=== PATIENT | female | born 1990 | race Caucasian/White ===

== ENCOUNTER → 2016-09-18 | Outpatient (CLI) | payer BC ==
--- NOTE | 2016-09-18 11:27 | US ---
EXAMINATION TYPE: US thyroid st tissue head/neck DATE OF EXAM: 09/18/2016 COMPARISON: US CLINICAL HISTORY: E04.1 Thyroid Nodule. GLAND SIZE: Right Lobe: 4.8 x 1.1 x 1.7 cm Overall Parenchyma: homogenous Left Lobe: 5.0 x 1.5 x 1.6 cm Overall Parenchyma: homogeneous Isthmus Thickness: 0.3 cm NODULES RIGHT: # of nodules measured on right: 0 LEFT: # of nodules measured on left: 0 ISTHMUS: # of nodules measured in the isthmus: 0 Bilateral neck scanned, no evidence of lymphadenopathy. Unable to reproduce tiny nodule seen on previous, node not identified either. IMPRESSION: THYROMEGALY.
== END | disposition home or self-care (01) ==
LOC: RADUSWWP 10:46
PROVIDERS: ATTEND Otolaryngology
DX: E01.0 Iodine-deficiency related diffuse (endemic) goiter (principal)
CPT/HCPCS: 76536

== ENCOUNTER 2020-11-03 06:00 | Inpatient (IN) | payer BC ==
[2020-11-03] MEDS ORDERED: OXYTOCIN 10 UNIT/ML 1 ML VIAL IM PRN (06:31)
[2020-11-03] MEDS ORDERED: LIDOCAINE 0.5% (PF) 5 MG/ML (50 ML SDV) SQ PRN (06:31)
[2020-11-03] MEDS ORDERED: CARBOPROST TROMETHAMINE 250 MCG/ML 1 ML AMP IM PRN (06:31)
[2020-11-03] MEDS ORDERED: TERBUTALINE 1 MG/ML VIAL SQ PRN (06:31)
[2020-11-03] MEDS ORDERED: METHYLERGONOVINE 0.2 MG/ML 1 ML AMP IM PRN (06:31)
[2020-11-03] MEDS ORDERED: OXYTOCIN 30 UNITS/500 ML NS 30 UNIT in SALINE 1 500ML.BAG IV SCH ×2 (06:31→11:23)
--- NOTE | 2020-11-03 06:52 | P.HPOB ---
History of Present Illness H&P Date: 11/03/20 Chief Complaint: Requested induction of labor This patient is a pleasant 30-year-old 2 para 1 female estimated date of confinement 11/05/2020 estimated gestational age 39-5/7 weeks who presents to labor and delivery for requested induction of labor and large for gestational age. Patient's obstetrical history is such that her first she had a 10 lbs. 4 oz. baby vaginally without complications. This baby is also tended large, although not quite is a gets her first baby she went overdue last time we discussed delivery plan this time and plan is to proceed with induction at her due date. care otherwise has been uncomplicated. 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 I did review her maternal medicine notes from her first and this was then non-classical type and the child would be a carrier but did not a condition that unless the partner carried the gene and it was female. She is having a boy. is been otherwise uncomplicated. 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); nonclassical type Past Surgical History: No Surgical Hx Reported Past Anesthesia/Blood Transfusion Reactions: No Reported Reaction Past Psychological History: No Psychological Hx Reported Smoking Status: Never smoker Past Alcohol Use History: None Reported Past Drug Use History: None Reported Medications and Allergies Home Medications Medication Instructions Recorded Confirmed Type Pnv No.95/Ferrous Fum/Folic AC 1 tab PO ONCE 11/03/20 11/03/20 History [ Multivitamin Tablet] Allergies Allergy/AdvReac Type Severity Reaction Status Date / Time No Known Allergies Allergy Verified 11/03/20 06:31 Exam Intake and Output 11/02/20 11/02/20 11/03/20 14:59 22:59 06:59 Other: Weight 94.801 kg - OBG Physical Exam Abdomen: bowel sounds normal, no diffuse tenderness, no bruit present, no guarding noted, no hepatomegaly, no splenomegaly, no mass Vulva: both: normal Vagina: normal moisture, no discharge Cervix: no lesion (Cervix is 2 cm and thick and -2 station), no discharge Uterus: enlarged (Fundal height is 42 cm) Results blood work shows she is A positive, rubella immune, RPR nonreactive, hepatitis B negative, Glucola was abnormal with a normal three-hour gtt., group B strep was negative, ultrasound most recently showed 6 lbs. 13 oz. at the 88th percentile. Assessment and Plan Assessment: This is a pleasant 30-year-old 2 para 1 female 39-5/7 weeks gestation admitted to labor and delivery for requested induction of labor secondary to large for gestational age. Patient's had a previous vaginal delivery of 10 lbs. 4 oz. baby without problem and therefore vaginal delivery is recommended. Plan is induction of labor and anticipate normal vaginal delivery. Patient also does have a history herself of congenital adrenal hyperplasia that is not required medication for treatment and previous evaluation by maternal medicine indicate that this fetus should not be affected however could be a carrier. (1) 39 weeks gestation of Current Visit: Yes Status: Acute Code(s): Z3A.39 - 39 WEEKS GESTATION OF SNOMED Code(s): 03344737 (2) Elective induction of labor planned Current Visit: Yes Status: Acute Code(s): [id number] - SNOMED Code(s): 039920588 (3) Large for gestational age fetus Current Visit: Yes Status: Acute Code(s): [id number] - SNOMED Code(s): 132758181
[2020-11-03] MEDS: LACTATED RINGERS 1,000 ML IV SCH ×2 (06:53→10:10)
[2020-11-03 07:06] LABS: Basophils % (A) 0 %; Eosinophils % (A) 1 %; HGB 14.2 gm/dL (11.4-16.0); Lymphocytes # (A) 1.4 k/uL (1.0-4.8); Lymphocytes % (A) 20 %; MCH 37.1 pg (25.0-35.0); MCHC 35.5 g/dL (31.0-37.0); MCV 104.6 fL (80.0-100.0); Macrocytosis Slight; Mean Platelet Volume 10.8; Monocytes # (A) 0.4 k/uL (0-1.0); Monocytes % (A) 5 %; Neutrophils % (A) 72 %; Platelet Count 130 k/uL (150-450); RBC 3.83 m/uL (3.80-5.40); RDW 11.8 % (11.5-15.5); WBC 6.9 k/uL (3.8-10.6)
[2020-11-03 07:11] VITALS: RESP 16
[2020-11-03] MEDS ORDERED: SODIUM CHLORIDE 0.9% 100 ML BAG ONE (10:07)
[2020-11-03] MEDS ORDERED: fentaNYL (PF) 50 MCG/ML 5 ML AMP ONE (10:07)
[2020-11-03] MEDS ORDERED: ROPIVACAINE 5MG/ML 20ML VIAL ONE (10:07)
[2020-11-03] MEDS ORDERED: diphenhydrAMINE 25 MG CAP PO PRN (11:23)
[2020-11-03] MEDS ORDERED: ACETAMINOPHEN TAB 325 MG TAB PO PRN (11:23)
[2020-11-03] MEDS ORDERED: LANOLIN CREAM 5 GM TUBE TOPICAL PRN (11:23)
[2020-11-03] MEDS ORDERED: HYDROCORTISONE 2.5% RECTAL CREAM 30 GM TUBE RECTAL PRN (11:23)
[2020-11-03] MEDS ORDERED: BENZOCAINE/MENTHOL SPRAY 1 GM/SPRAY AEROSOL TOPICAL PRN (11:23)
[2020-11-03] MEDS ORDERED: ZOLPIDEM 5 MG TAB PO PRN (11:23)
[2020-11-03] MEDS ORDERED: SIMETHICONE 80 MG CHEWABLE PO PRN (11:23)
[2020-11-03] MEDS ORDERED: bisacodyL 10 MG SUPP RECTAL PRN (11:23)
[2020-11-03] MEDS ORDERED: diphenhydrAMINE 50 MG/ML 1 ML VIAL IVP PRN (11:23)
[2020-11-03] MEDS: SENNOSIDES-DOCUSATE SODIUM 1 EACH TAB PO SCH ×2 (12:17→23:50)
--- NOTE | 2020-11-03 12:51 | P.PROBDLV ---
Vaginal Delivery Note - . Vaginal Delivery Note: Normal vaginal delivery viable male infant Apgars 9 and 9 delivery time was 1118 hrs. Please see dictated H&P for intimate details of this patient's admission. Brief summary this is a pleasant 30-year-old 2 para 1 female 39 and one sevenths weeks gestation who is admitted to labor and delivery for requested induction of labor. On admission patient is 2 cm dilated is artificial rupture membranes for clear fluid. Labor is induced with Pitocin per protocol. Labor progresses and she does get an epidural for pain control. Patient quickly gets to complete pushes the head to the perineum. Posterior perineum was supported we have controlled delivery of the 's head over the intact perineum mouth and nares are bulb suctioned. There is no evidence of a nuchal cord. With gentle downward traction we have delivery the anterior and posterior shoulder and rest this infant's body. Infant was straight occiput anterior presentation. After delivery of the infant is late on the mother's abdomen. This is a vigorous viable male infant Apgars are 9 and 9 delivery time was 1118 hrs. After delivery of the infant the umbilical cords allowed to quit pulsating is then doubly clamped and cut. The placenta is then spontaneously delivered intact. Estimated blood loss is 100 mL. Inspection of perineum shows no lacerations and no repair. All counts correct 3. There are no complications. Mother are stable delivery room.
[2020-11-03] MEDS: IBUPROFEN 600 MG TAB PO PRN ×2 (14:54→20:54)
[2020-11-03 23:29] VITALS: TEMP 97.9
--- NOTE | 2020-11-04 06:31 | P.PNOBGVD ---
Subjective - Subjective Patient reports: Reports appetite normal, Reports voiding normally, Reports pain well controlled, Reports ambulating normally : doing well Objective - Latest Vital Signs Latest vital signs: Vital Signs Temp Pulse Resp BP Pulse Ox 11/04/20 00:00 97.9 F 65 16 120/78 100 11/03/20 20:00 97.9 F 72 16 116/73 100 11/03/20 16:00 98.1 F 55 L 16 124/73 97 11/03/20 13:25 97.6 F 82 16 119/72 11/03/20 12:55 74 16 112/67 11/03/20 12:25 68 16 132/85 11/03/20 12:10 58 L 16 133/86 11/03/20 11:55 61 16 123/77 11/03/20 11:40 69 16 125/82 11/03/20 11:25 69 16 124/79 11/03/20 06:31 97.6 F 85 16 131/76 99 Intake and Output 11/03/20 11/03/20 11/04/20 14:59 22:59 06:59 Intake Total 4.367 Balance 4.367 Intake: Intake, IV Titration 4.367 Amount Oxytocin 30 Units/500 ml 4.367 Ns 30 unit In Saline 1 500ml.bag @ Per Protocol IV .Q0M [facility] Rx#:[id number] Other: # Voids 1 1 1 - Exam Lungs: bilateral: normal Chest: Normal S1, Normal S2 Extremities: Present: normal Abdomen: Present: normal appearance, soft Uterus: Present: normal, firm - Labs Labs: Abnormal Lab Results - Last 24 Hours (Table) 11/03/20 Range/Units 06:35 MCV 104.6 H (80.0-100.0) fL MCH 37.1 H (25.0-35.0) pg Plt Count 130 L (150-450) k/uL Assessment and Plan Assessment: day #1. Patient is resting without new complaints and wishes to go home. Vital signs are stable she is afebrile. Uterus is firm nontender she's having normal lochia. Admission platelets were 130 she states that she did have some mild thrombocytopenia with her last . I am Monty and a repeat her CBC today. Impression is normal course. Plan is to continue routine care, check CBC, discharge home later this morning. (1) 39 weeks gestation of Current Visit: Yes Status: Acute Code(s): Z3A.39 - 39 WEEKS GESTATION OF SNOMED Code(s): 76465681 (2) Elective induction of labor planned Current Visit: Yes Status: Acute Code(s): [id number] - SNOMED Code(s): 467666436 (3) Large for gestational age fetus Current Visit: Yes Status: Acute Code(s): [id number] - SNOMED Code(s): 607453568
--- NOTE | 2020-11-04 06:37 | P.DS ---
Providers Date of admission: 11/03/20 06:00 Expected date of discharge: 11/04/20 Attending physician: Kash Nicolas Primary care physician: Stated None - Discharge Diagnosis(es) (1) 39 weeks gestation of Current Visit: Yes Status: Acute (2) Elective induction of labor planned Current Visit: Yes Status: Acute (3) Large for gestational age fetus Current Visit: Yes Status: Acute Hospital Course: Please see dictated H&P for intimate details of this patient's admission. Brief summary this is a pleasant 30-year-old 2 para 1 female 39-5/7 weeks who presents to labor and delivery for requested induction of labor. Patient quickly goes on have a vaginal delivery viable male . Please see dictated delivery note. day #1 patient's felt be stable for discharge home follow up with me in 6 weeks. Procedures: Induction of labor and normal vaginal delivery Patient Condition at Discharge: Good Plan - Discharge Summary New Discharge Prescriptions: New Ibuprofen [Motrin] 600 mg PO Q6HR PRN #30 tab PRN Reason: Pain No Action Pnv No.95/Ferrous Fum/Folic AC [ Multivitamin Tablet] 1 tab PO ONCE Discharge Medication List Pnv No.95/Ferrous Fum/Folic AC [ Multivitamin Tablet] 1 tab PO ONCE 11/03/20 [History] Ibuprofen [Motrin] 600 mg PO Q6HR PRN #30 tab 11/04/20 [Rx] Follow up Appointment(s)/Referral(s): Kash Nicolas MD [STAFF PHYSICIAN] - 12/15/20 11:00 am Patient Instructions/Handouts: Vaginal Delivery (DC) Activity/Diet/Wound Care/Special Instructions: No intercourse or anything per vagina for 6 weeks. Please call if any fever, chills, excessive vaginal bleeding, and/or abdominal pain Discharge Disposition: HOME SELF-CARE
[2020-11-04] MEDS: IBUPROFEN 600 MG TAB PO PRN (06:46)
[2020-11-04 07:10] LABS: Basophils % (A) 0 %; Eosinophils # (A) 0.1 k/uL (0-0.7); Eosinophils % (A) 1 %; HCT 38.9 % (34.0-46.0); HGB 13.2 gm/dL (11.4-16.0); Lymphocytes # (A) 1.1 k/uL (1.0-4.8); Lymphocytes % (A) 15 %; MCH 36.2 pg (25.0-35.0); MCHC 34.1 g/dL (31.0-37.0); MCV 106.3 fL (80.0-100.0); Macrocytosis Slight; Mean Platelet Volume 10.3; Monocytes # (A) 0.3 k/uL (0-1.0); Monocytes % (A) 4 %; Neutrophils # (A) 5.8 k/uL (1.3-7.7); Neutrophils % (A) 79 %; Platelet Count 115 k/uL (150-450); RBC 3.66 m/uL (3.80-5.40); RDW 11.9 % (11.5-15.5); WBC 7.4 k/uL (3.8-10.6)
[2020-11-04] MEDS: SENNOSIDES-DOCUSATE SODIUM 1 EACH TAB PO SCH (07:32)
[2020-11-04 07:39] VITALS: BP 118/72; PULSE 68
== END 2020-11-04 12:05 | disposition home or self-care (01) | DRG 807 ==
LOC: 4FBP 06:00
PROVIDERS: ADMIT Obstetrics & Gynecology; ATTEND Obstetrics & Gynecology
PROC: 10E0XZZ Delivery of Products of Conception, External Approach (ICD-10-PCS; principal; 2020-11-03)
PROC: 10907ZC Drainage of Amniotic Fluid, Therapeutic from Products of Conception, Via Natural or Artificial Opening (ICD-10-PCS; 2020-11-03)
DX: O36.63X0 Maternal care for excessive fetal growth, third trimester, not applicable or unspecified (principal); Z37.0 Single live birth; Z3A.39 39 weeks gestation of pregnancy; E25.0 Congenital adrenogenital disorders associated with enzyme deficiency
CPT/HCPCS: 85025; 86850; 86900; 86901

== ENCOUNTER → 2023-01-01 | Outpatient (CLI) | payer BC ==
[2023-01-01 11:17] LABS: Chol/HDL Ratio 2.59 Ratio; Glucose 94 mg/dL (70-110); LDL Cholesterol,Calculated 91.6 mg/dL (0.0-131.0); VLDL Calculation 14.14 mg/dL (5.00-40.00)
== END | disposition home or self-care (01) ==
LOC: LABWHC1 06:56
PROVIDERS: ATTEND Family Medicine
DX: Z00.00 Encounter for general adult medical examination without abnormal findings (principal)
CPT/HCPCS: 36415; 80061; 82947; 83036

== ENCOUNTER → 2024-01-15 | Outpatient (CLI) | payer OTHER ==
[2024-01-15 11:02] LABS: Basophils # (A) 0.01 X 10*3/uL (0.00-0.10); Basophils % (A) 0.3 %; Eosinophils # (A) 0.06 X 10*3/uL (0.04-0.35); Eosinophils % (A) 1.8 %; HGB 14.2 g/dL (12.0-15.0); Lymphocytes # (A) 1.48 X 10*3/uL (0.90-5.00); Lymphocytes % (A) 44.8 %; MCH 34.7 pg (27.0-32.0); MCHC 34.6 g/dL (32.0-37.0); MCV 100.2 FL (80.0-97.0); Mean Platelet Volume 10.9 FL (9.5-12.2); Monocytes # (A) 0.23 X 10*3/uL (0.20-1.00); NRBC Per 100 WBC 0 X 10*3/uL (0.00-0.01); Neutrophils # (A) 1.51 X 10*3/uL (1.80-7.70); Neutrophils % (A) 45.8 %; Platelet Count 179 X 10*3/uL (140-440); RBC 4.09 X 10*6/uL (4.10-5.20); RDW 11.7 % (11.5-14.5)
[2024-01-15 11:40] LABS: ALT 18 U/L (8-44); AST 20 U/L (13-35); Albumin 4.3 g/dL (3.8-4.9); Albumin/Globulin Ratio 1.72 Ratio (1.60-3.17); Alkaline Phosphatase 38 U/L (41-126); BUN/Creat Ratio 22.75 Ratio (12.00-20.00); Blood Urea Nitrogen 18.2 mg/dL (9.0-27.0); C Reactive Protein <0.30 mg/dL (0.00-0.80); Calcium 9.1 mg/dL (8.7-10.3); Carbon Dioxide 24.2 mmol/L (21.6-31.8); Chloride 106 mmol/L (96-109); Chol/HDL Ratio 2.52 Ratio; Globulin 2.5 g/dL (1.6-3.3); Glucose 94 mg/dL (70-110); LDL Cholesterol,Calculated 78.3 mg/dL (0.0-131.0); Magnesium 1.9 mg/dL (1.5-2.4); Potassium 4.5 mmol/L (3.5-5.5); Sodium 141 mmol/L (135-145); T4, Free (Free Thyroxine) 1.28 ng/dL (0.80-1.80); Total Bilirubin 0.4 mg/dL (0.3-1.2); Total Protein 6.8 g/dL (6.2-8.2)
[2024-01-15 11:42] LABS: Follicle Stimulating Hormone 3.8 mIU/mL; Luteinizing Hormone 9.1 mIU/mL; Progesterone 0.4 ng/mL
[2024-01-16 19:09] LABS: Thyroid Stim Immun Quant <0.10 IU/L (<0.10)
[2024-01-20 19:38] LABS: Androstenedione 167 ng/dL
== END | disposition home or self-care (01) ==
LOC: LABWHC1 07:03
PROVIDERS: ATTEND Family Medicine
DX: Z00.00 Encounter for general adult medical examination without abnormal findings (principal); E25.0 Congenital adrenogenital disorders associated with enzyme deficiency; Z79.891 Long term (current) use of opiate analgesic
CPT/HCPCS: 36415; 80053; 80061; 82157; 82306; 82533; 82607; 82627; 82671; 82746; 83001; 83002; 83036; 83735; 84144; 84270; 84403; 84439; 84443; 84445; 84481; 84482; 85025; 86140; 86800